=== PATIENT | male | born 1965 | race Caucasian/White ===

== ENCOUNTER 2019-04-29 10:22 | Day surgery (SDC) | payer OTHER ==
[~2019-04-29 10:22] MED LIST: CEFAZOLIN 2 GM/50 ML (PMX) 50 ML IVPB
[2019-04-29] MEDS ORDERED: ALBUTEROL 0.083% (NEB) 2.5 MG/3 ML AMP HHN (12:00)
[2019-04-29] MEDS ORDERED: MEPERIDINE 25 MG INJ IV (12:00)
[2019-04-29] MEDS ORDERED: ONDANSETRON 4 MG INJ IV (12:00)
[2019-04-29] MEDS ORDERED: FENTAnyl 50 MCG/ML VIAL IV ×2 (12:00)
[2019-04-29] MEDS ORDERED: METOCLOPRAMIDE 10 MG INJ IV (12:00)
[2019-04-29] MEDS ORDERED: HYDROmorphONE 1 MG/5 ML IV SYRINGE IV ×2 (12:00)
[2019-04-29] MEDS ORDERED: DIPHENHYDRAMINE 50 MG INJ IV (12:00)
[2019-04-29] MEDS ORDERED: ROCURONIUM 50 MG INJ ×2 (12:04→12:07)
[2019-04-29] MEDS ORDERED: FENTAnyl 50 MCG/ML VIAL (12:05)
[2019-04-29] MEDS ORDERED: PROPOFOL 20 ML (12:07)
[2019-04-29] MEDS ORDERED: LIDOCAINE 100 MG SYRINGE (12:07)
[2019-04-29] MEDS ORDERED: CEFAZOLIN 1 GM INJ (12:07)
[2019-04-29] MEDS ORDERED: SUCCINYLCHOLINE CHLORIDE 100 MG/5 ML SYG IV (12:07)
[2019-04-29] MEDS: BUPIVACAINE 0.5% (SDV) 30 ML INJ (12:37)
[2019-04-29] MEDS: BACITRACIN/POLYMYXIN 28.35 GM OINT TOP (14:08)
[2019-04-29] MEDS ORDERED: SUGAMMADEX SODIUM 200 MG/2 ML VIAL IV (14:09)
[2019-04-29] MEDS: LACTATED RINGER'S 1,000 ML IV (14:30)
[2019-04-29] MEDS: HYDROmorphONE 1 MG/5 ML IV SYRINGE IV (14:42)
[2019-04-29] MEDS ORDERED: HYDROCODONE/APAP (5/325) TAB PO (15:00)
== END 2019-04-29 16:15 | disposition home or self-care (01) ==
LOC: SDS 10:22
DX: N43.3 Hydrocele, unspecified (principal)
CPT/HCPCS: 55500; 88302